=== PATIENT | male | born 1950 | race Caucasian/White ===

== ENCOUNTER → 2020-10-14 | Outpatient (CLI) | payer MEDICARE, OTHER ==
--- NOTE | 2020-10-14 14:43 | US ---
LOWER EXTREMITY VENOUS INSUFFICIENCY CLINICAL HISTORY: L97.322 NONPRESSURE CHRONIC ULCER OF LT ANKLE W/ F. left nonhealing wound SIDE PERFORMED: Left 1) Color flow is present and patency is documented in the following vessels. No DVT or SVT is noted . Common Femoral Vein Deep Femoral Vein Femoral Vein Popliteal Vein Proximal Calf Veins Greater Saph Vein Upper Small Saph Vein 2) There is venous reflux noted at the following venous levels: None 3) Incompetent perforators are noted at these levels: None IMPRESSION: 1. Bilateral lower extremity ultrasound appears unremarkable. No deep venous thrombosis or significan t reflux is evident.
--- NOTE | 2020-10-23 09:59 | P.ARTDOP ---
Arterial Doppler LOWER EXTREMITY ARTERIAL DOPPLER: DATE OF SERVICE: 10/14/2020 Reason for study: Left foot ulcer. Doppler waveforms: Multiphasic throughout bilaterally. Pulse volume recording: Normal configurations. Pressure gradients: None except the great toe on the left. Ankle-brachial indices: Greater than 1 bilaterally. Toe brachial indices: 0.87 on the right, 0.34 on the left Impression: Probably a normal study. Lower toe pressure on the left is not consistent with digital waveforms. Clinical correlation recommended.
== END | disposition home or self-care (01) ==
LOC: RADUSWWP 13:38
PROVIDERS: ATTEND Thoracic Surgery (Cardiothoracic Vascular Surgery)
DX: L97.322 Non-pressure chronic ulcer of left ankle with fat layer exposed (principal); Z88.0 Allergy status to penicillin; Z88.2 Allergy status to sulfonamides; Z88.1 Allergy status to other antibiotic agents; Z88.9 Allergy status to unspecified drugs, medicaments and biological substances
CPT/HCPCS: 93922; 93923

== ENCOUNTER → 2022-12-07 | Day surgery (SDC) | payer MEDICARE, OTHER ==
[2022-12-06 09:04] VITALS: BMI 30.8
[~2022-12-07] MED LIST: ALPRAZolam 0.25 MG TAB PO PRN; ALPRAZolam 0.5 MG TAB PO PRN; ASPIRIN 325 MG TAB PO STA; ATORVASTATIN 80 MG TAB PO STA; BENZOCAINE SPRAY 1 CAN TOPICAL ONE; HEPARIN SODIUM 1,000 UN/ML (10ML VL) IV ONE; HEPARIN SODIUM 1,000 UN/ML (10ML VL) ONE; HEPARIN SODIUM,PORCINE 10,000 UNIT in SODIUM CHLORIDE 0.9% 1,000 ML IRRIGATION PRN; HEPARIN SODIUM,PORCINE 2,500 UNIT in SODIUM CHLORIDE 0.9% 250 ML IRRIGATION PRN; IOPAMIDOL-370 125ML BTL INJ ONE; LIDOCAINE 1% INJ 10MG/ML (5 ML VIAL-PF) SQ ONE; MIDAZOLAM 2 MG/2 ML VIAL IV ONE; NITROGLYCERIN SL TABS 0.4 MG TAB SUBLINGUAL PRN; SODIUM CHLORIDE 0.9% 1,000 ML in EMPTY BAG 1 BAG IV SCH; VERAPAMIL 2.5 MG/ML 2 ML AMP ONE; VERAPAMIL SYRINGE (5 MG/10 ML) INTRAARTER ONE; fentaNYL (PF) 50 MCG/1 ML VIAL IV ONE; fentaNYL (PF) 50 MCG/ML 2 ML AMP ONE
[2022-12-07 07:38] VITALS: TEMP 97.4
[2022-12-07 08:18] LABS: African American GFR (CKD) >90 (>60 ml/min/1.73 sqM); Anion Gap 5 mmol/L; Blood Urea Nitrogen 16 mg/dL (9-20); Carbon Dioxide 29 mmol/L (22-30); Chloride 105 mmol/L (98-107); Glucose 104 mg/dL (74-99); Non-African American GFR(CKD) 90 (>60 ml/min/1.73 sqM); Potassium 4.3 mmol/L (3.5-5.1); Sodium 139 mmol/L (137-145)
[2022-12-07 08:27] LABS: Basophils % (A) 0 %; Eosinophils # (A) 0.3 k/uL (0-0.7); Eosinophils % (A) 5 %; HCT 43.3 % (39.0-53.0); HGB 14.5 gm/dL (13.0-17.5); Lymphocytes # (A) 1.8 k/uL (1.0-4.8); Lymphocytes % (A) 27 %; MCH 29.8 pg (25.0-35.0); MCHC 33.6 g/dL (31.0-37.0); MCV 88.9 fL (80.0-100.0); Mean Platelet Volume 7.3; Monocytes # (A) 0.5 k/uL (0-1.0); Monocytes % (A) 7 %; Neutrophils # (A) 3.9 k/uL (1.3-7.7); Neutrophils % (A) 59 %; Platelet Count 340 k/uL (150-450); RBC 4.87 m/uL (4.30-5.90); RDW 13.1 % (11.5-15.5); WBC 6.7 k/uL (3.8-10.6)
[2022-12-07 10:37] VITALS: RESP 16
--- NOTE | 2022-12-07 12:25 | XR ---
EXAMINATION TYPE: XR chest 2V DATE OF EXAM: 12/07/2022 COMPARISON: NONE TECHNIQUE: PA and lateral views submitted. HISTORY: Preop FINDINGS: The lungs are clear and there is no pneumothorax, pleural effusion, or focal pneumonia. Heart size normal and no overt failure. Osseous structures demonstrate hypertrophic and degenerative changes of the spine. Interstitium is somewhat coarsened. Subsegmental changes at the lung bases mainly in the b ases of reduced inspiration. Hyperinflation suggesting mild COPD. Arthropathy of the AC joints. IMPRESSION: 1. Interstitium is coarsened. There are no prior exams. This could be on the basis of chronic interst itial lung disease or bronchitis. Interstitial acute pneumonitis or mild venous congestion not exclud ed without a prior exam. Correlate clinically. 2. Bibasilar subsegmental consolidation felt most typical of atelectasis secondary to reduced inspira tion.
[2022-12-07 12:40] LABS: ALT 25 U/L (4-49); AST 35 U/L (17-59); African American GFR (CKD) >90 (>60 ml/min/1.73 sqM); Albumin 4.1 g/dL (3.5-5.0); Alkaline Phosphatase 49 U/L (38-126); Anion Gap 5 mmol/L; Blood Urea Nitrogen 13 mg/dL (9-20); Calcium 8.8 mg/dL (8.4-10.2); Carbon Dioxide 27 mmol/L (22-30); Chloride 105 mmol/L (98-107); Glucose 130 mg/dL (74-99); Magnesium 1.7 mg/dL (1.6-2.3); Non-African American GFR(CKD) >90 (>60 ml/min/1.73 sqM); Potassium 4.5 mmol/L (3.5-5.1); Sodium 137 mmol/L (137-145); Total Bilirubin 1.8 mg/dL (0.2-1.3); Total Protein 6.9 g/dL (6.3-8.2)
[2022-12-07 12:43] LABS: INR 1.1 (<1.2); Partial Thromboplastin Time 30.7 sec (22.0-30.0)
[2022-12-07 13:05] VITALS: BP 191/88; PULSE 62
[2022-12-07 13:07] LABS: Appearance,Urine Clear (Clear); Bilirubin,Urine Negative (Negative); Blood,Urine Negative (Negative); Color,Urine Light Yellow; Glucose,Urine (UA) Negative (Negative); Ketones,Urine Negative (Negative); Leukocyte Esterase,Urine Negative (Negative); Nitrite,Urine Negative (Negative); Protein,Urine Negative (Negative); Specific Gravity,Urine 1.026 (1.001-1.035); Urobilinogen,Urine <2.0 mg/dL (<2.0)
--- NOTE | 2022-12-07 13:40 | LTR ---
Dear Rodrick: I performed left heart catheterization and transesophageal echo on Umesh Diego. The patient has severe mitral regurgitation and mild nonobstructive CAD and will be referred to a cardiothoracic surgeon for mitral valve repair. Thank you for giving me the privilege to participate in the care of this pleasant gentleman. LEE ANN / RUBEN: [id number] /
--- NOTE | 2022-12-07 13:40 | CC ---
CARDIAC CATHETERIZATION REPORT INDICATIONS: Severe mitral regurgitation. PROCEDURE NOTE: After obtaining informed consent, left heart catheterization, coronary angiogram and LV- gram were performed via the right radial artery using standard Edmar catheters. The patient tolerated the procedure well without any obvious immediate complications, received moderate conscious sedation. Total sedation time was 24 minutes. Right radial artery access was obtained using modified Seldinger technique. The 6- Kyr[place]z sheath was placed. Catheters and wires were floated into the ascending aorta under fluoroscopic guidance. The patient received 6 mg of verapamil and 5000 units of heparin per protocol. During the left ventriculogram, the connecting tube got disconnected inadvertently towards the end of the injection, but the procedure was completed uneventfully. FINDINGS: 1. Hemodynamics: Left ventricular end-diastolic pressure is 11 mm. There is no significant gradient across the aortic valve. 2. Angiographic Data: a.Right Coronary Artery: Right coronary artery is a codominant vessel. The PLV branch appears small. There is mild nonobstructive disease in the right coronary artery. Left main coronary artery is a short vessel and is free of significant stenosis. Divides into left anterior descending coronary artery and circumflex coronary artery. LAD shows a 30% to 40% mid LAD disease and circumflex coronary artery shows mild nonobstructive disease. b.Left Ventriculogram: Left ventriculogram is performed in PAT position, shows an enlarged left ventricle with ejection fraction of around 55% with 3+ mitral regurgitation. CONCLUSION: 1. Mild nonobstructive coronary artery disease. 2. Mildly dilated left ventricle with an ejection fraction of around 55%. 3. Mitral regurgitation. PLAN: I am going to refer the patient to a cardiothoracic surgeon for mitral valve repair. MMODL / IJN: [id number] /
--- NOTE | 2022-12-07 13:56 | ECHOT ---
TRANSESOPHAGEAL ECHOCARDIOGRAM INDICATION: Umesh is a 72-year-old gentleman that is referred to us for evaluation of dizziness and was found to have a murmur of mitral regurgitation. He had an echocardiogram and a stress test, was found to have significant mitral regurgitation and was advised to undergo transesophageal echo and left heart catheterization. His dizziness has actually resolved from his initial presentation. PROCEDURE NOTE: After obtaining informed consent, transesophageal echocardiogram was performed in left lateral position using an Omniplane probe. Local and IV sedation were obtained with a milligram of Versed and 50 mcg of fentanyl. Total sedation time was 10 minutes. The patient tolerated the procedure well without any obvious immediate complications. FINDINGS: 1. Mitral valve appears thickened, shows mitral valve prolapse with partial flail of the posterior mitral leaflet with severe anteriorly-directed mitral regurgitation with reversal of flow into the pulmonary vein. 2. Left atrium appears severely enlarged. 3. Right atrium and right ventricle seen within normal limits. 4. Left ventricle has normal size with an ejection fraction of 50%. 5. Tricuspid valve shows mild tricuspid regurgitation. There is no evidence of left- to-right shunt by color-flow Doppler or [id number] shunt by agitated saline contrast study. 6. Aortic root measures within normal limits. Aortic valve is a 3-leaflet valve and it is free of stenosis or regurgitation. CONCLUSION: Severe mitral regurgitation secondary to partial flail of the posterior mitral leaflet. PLAN: The patient will undergo cardiac catheterization and will be referred for mitral valve repair. MMODL / IJN: [id number] /
--- NOTE | 2022-12-07 14:33 | US ---
EXAMINATION TYPE: US carotid duplex BILAT DATE OF EXAM: 12/07/2022 COMPARISON: NONE CLINICAL HISTORY: Pre-Op Cardiac Surgery. Pre op cardiac surgery. Hx hyperlipidemia. TECHNIQUE: Carotid duplex ultrasound examination. Indirect Doppler criteria was utilized. FINDINGS: EXAM MEASUREMENTS: RIGHT: Peak Systolic Velocity (PSV) cm/sec ----- Right CCA: 114.3 ----- Right ICA: 104.1 ----- Right ECA: 135.0 ICA/CCA ratio: 0.9 RIGHT: End Diastole cm/sec ----- Right CCA: 19.8 ----- Right ICA: 25.6 ----- Right ECA: 10.7 LEFT: Peak Systolic Velocity (PSV) cm/sec ----- Left CCA: 96.5 ----- Left ICA: 106.9 ----- Left ECA: 162.7 ICA/CCA ratio: 1.1 LEFT: End Diastole cm/sec ----- Left CCA: 21.5 ----- Left ICA: 24.1 ----- Left ECA: 16.9 VERTEBRALS (direction of flow): Right Vertebral: Antegrade Left Vertebral: Antegrade Rhythm: Normal PRESIDING JUDGE NOTES: Plaque seen within bilateral bulbs and bilateral proximal ICAs. Elevated velocitie s within bilateral ECA. IMPRESSION: 1. No clinically significant stenosis involving the bilateral internal carotid arteries. 2. Mild stenosis involving the bilateral external carotid arteries. Criteria for Assigning % of Stenosis / Diameter reduction (Estimation based on the indirect measurements of the internal carotid artery velocities (ICA PSV). 1. Normal (no stenosis)=ICA PSV < 125 cm/s: ratio < 2.0: ICA EDV<40 cm/s. 2. Less than 50% stenosis=ICA PSV < 125 cm/s: ratio < 2.0: ICA EDV<40 cm/s. 3. 50 to 69% stenosis=ICA PSV of 125 to 230 cm/s: ration 2.0 ? 4.0: ICA EDV 40-100 cm/s. 4. Greater than 70% stenosis to near occlusion= ICA PSV > 230 cm/s: ratio > 4.0: ICA EDV > 100 cm/s. 5. Near occlusion= ICA PSV velocities may be low or undetectable: variable ratio and ICA EDV. 6. Total occlusion=unable to detect flow.
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
[2022-12-07 18:57] LABS: Chol/HDL Ratio 3.01 Ratio; LDL Cholesterol,Calculated 98.7 mg/dL (0.0-131.0); VLDL Calculation 16.92 mg/dL (5.00-40.00)
[2022-12-07 19:08] LABS: Hepatitis A Antibody IgM Nonreactive (Nonreactive); Hepatitis B Core IgM Nonreactive (Nonreactive); Hepatitis B Surface Antigen Nonreactive (Nonreactive); Hepatitis C IgG Antibody Nonreactive (Nonreactive)
--- NOTE | 2022-12-08 15:12 | US ---
EXAMINATION TYPE: US arterial LE single level DATE OF EXAM: 12/07/2022 4:11 PM CLINICAL HISTORY: Preoperative CABG) . History of: Smoker: No Hypertension: No Diabetic: No Hyperlipidemia: Yes Comparison: Prior study October 14, 2020 Doppler Waveforms: Right: Biphasic to monophasic Left: Biphasic to monophasic Pulse Volume Recording: Pressure Gradients: Right Brachial Pressure: deferred due to radial approach heart catheterization today Left Brachial Pressure: 148 Ankle-Brachial Indices: Right: 1.35 Left: 1.14 Toe Brachial Indices: Right: 0.89 Left: 0.39 IMPRESSION: Diminished phasicity bilaterally redemonstrated. Persistent diminished left-sided TBI va lue consistent with at least mild peripheral arterial disease in the left foot. Follow-up advised.
== END ==
LOC: CATHCVL 06:53
PROVIDERS: ATTEND Internal Medicine Cardiovascular Disease
DX: I25.10 Atherosclerotic heart disease of native coronary artery without angina pectoris (principal); I08.1 Rheumatic disorders of both mitral and tricuspid valves; E78.2 Mixed hyperlipidemia; Z82.49 Family history of ischemic heart disease and other diseases of the circulatory system; Z79.899 Other long term (current) drug therapy; Z88.0 Allergy status to penicillin; Z88.2 Allergy status to sulfonamides; Z88.5 Allergy status to narcotic agent; Z88.8 Allergy status to other drugs, medicaments and biological substances
CPT/HCPCS: 93458; 93312; 93320; 93325; 94150; 80061; 80053; 80048; 80074; 84443; 83735; 85025; 85610; 85730; 81003; 87070; 83036; 71046; 93922; 93880; C1769; C1894; J2250; J2001; J1644; Q9967; J3010

== ENCOUNTER → 2022-12-08 | Outpatient (CLI) | payer MEDICARE, OTHER ==
--- NOTE | 2022-12-08 12:41 | CT ---
EXAMINATION TYPE: CT chest wo con DATE OF EXAM: 12/08/2022 COMPARISON: Pre-op HISTORY: valve replacement pre op CT DLP: 508.7 mGycm. Automated Exposure Control for Dose Reduction was Utilized. TECHNIQUE: CT scan of the thorax is performed without IV contrast. FINDINGS: LUNGS: The lungs are grossly clear, there is no concerning parenchymal mass or nodule identified. T here is no pleural effusion or pneumothorax seen. The tracheobronchial tree is patent. MEDIASTINUM: Lack of IV contrast is noted to limit evaluation for mediastinal and especially hilar ad enopathy. There are no definitive greater than 1 cm hilar or mediastinal lymph nodes. No cardiomega ly or pericardial effusion is seen. The aorta is of normal course and caliber with mild atherosclerot ic changes. Aortic root measures 3.2 cm. There is calcification of the aortic root near the origin of the aortic valve. Coronary artery calcifications. OTHER: Moderate sized hiatal hernia. Hypertrophic and degenerative changes spine.. IMPRESSION: 1. Mild atherosclerotic change in the aorta. 2 coronary artery dense calcification correlate clinical ly. 3. Moderate-sized hiatal hernia.
== END | disposition home or self-care (01) ==
LOC: RADCTMAIN 11:02
PROVIDERS: ATTEND Surgery
DX: Z01.818 Encounter for other preprocedural examination (principal); K44.9 Diaphragmatic hernia without obstruction or gangrene; I70.0 Atherosclerosis of aorta; Z95.2 Presence of prosthetic heart valve
CPT/HCPCS: 71250

== ENCOUNTER 2024-10-09 14:47 | Emergency (ER) | payer MEDICARE, OTHER ==
[2024-10-09 14:55] VITALS: RESP 18
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
[2024-10-09] MEDS: MORPHINE SULFATE 4 MG/ML SYRINGE IM STA (15:43)
[2024-10-09 15:51] VITALS: TEMP 98
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
[2024-10-09] MEDS: HYDROmorphone 1 MG/ML 1 ML SYRINGE IM STA (17:46)
[2024-10-09] MEDS: ONDANSETRON ODT 4 MG TAB PO STA (17:52)
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
[2024-10-09] MEDS: ACET/COD 300 MG/30 MG STARTER PACK 6 TAB BTL PO STA (18:42)
[2024-10-09 18:57] VITALS: BP 140/79; PULSE 70
== END 2024-10-09 19:45 | disposition home or self-care (01) ==
LOC: EC 14:47
DX: S82.832A Other fracture of upper and lower end of left fibula, initial encounter for closed fracture (principal); Z88.0 Allergy status to penicillin; Z88.1 Allergy status to other antibiotic agents; Z88.2 Allergy status to sulfonamides; Z88.8 Allergy status to other drugs, medicaments and biological substances; V29.99XA Rider (driver) (passenger) of other motorcycle injured in unspecified traffic accident, initial encounter; Y92.410 Unspecified street and highway as the place of occurrence of the external cause
CPT/HCPCS: 73610; 73630; 73700; 99284; 96372 ×2; J2270; J1171

== ENCOUNTER 2024-10-26 14:14 | Inpatient (IN) | payer MEDICARE, OTHER ==
[2024-10-26] MEDS ORDERED: NALOXONE 0.4 MG/ML 1 ML VIAL IV PRN (15:05)
[2024-10-26] MEDS ORDERED: VANCOMYCIN IV PER PHARMACY 1 EACH MISC MISCELLANE PRN (15:07)
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
[2024-10-26] MEDS ORDERED: VANCOMYCIN 2,000 MG in SODIUM CHLORIDE 0.9% 500 ML 500 ML IVPB ONE (15:15)
[2024-10-26] MEDS ORDERED: PIPERACILLIN-TAZOBACTAM 3.375 GM in SODIUM CHLORIDE 0.9% 100 ML IVPB ONE (15:15)
[2024-10-26] MEDS: SODIUM CHLORIDE 0.9% 1,000 ML IV SCH (15:59)
[2024-10-26 16:56] LABS: African American GFR (CKD) 82 (>60 ml/min/1.73 sqM); Anion Gap 6 mmol/L; Blood Urea Nitrogen 21 mg/dL (9-20); Carbon Dioxide 22 mmol/L (22-30); Chloride 109 mmol/L (98-107); Glucose 79 mg/dL (74-99); Non-African American GFR(CKD) 71 (>60 ml/min/1.73 sqM); Potassium 4.4 mmol/L (3.5-5.1); Sodium 137 mmol/L (137-145)
[2024-10-26] MEDS: LIDOCAINE 1% INJ 10MG/ML (20 ML MDV) SQ ONE (18:16)
[2024-10-26] MEDS: PIPERACILLIN-TAZOBACTAM 3.375 GM in SODIUM CHLORIDE 0.9% 100 ML IVPB SCH (18:52)
[2024-10-26] MEDS: ACETAMINOPHEN TAB 325 MG TAB PO PRN (18:56)
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
[2024-10-26] MEDS: METOPROLOL TARTRATE 25 MG TAB PO SCH (22:10)
[2024-10-26] MEDS: oxyCODONE-APAP 5-325MG 1 EACH TAB PO PRN (22:11)
[2024-10-26] MEDS: TAMSULOSIN 0.4 MG CAP.ER.24H PO SCH (22:11)
[2024-10-26] MEDS: ATORVASTATIN 10 MG TAB PO SCH (22:11)
[2024-10-26] MEDS: APIXABAN 5 MG TAB PO SCH (22:11)
[2024-10-26] MEDS: VANCOMYCIN 1,500 MG in SODIUM CHLORIDE 0.9% 500 ML 500 ML IVPB SCH (23:17)
--- NOTE | 2024-10-27 02:01 | OP ---
OPERATIVE REPORT DATE OF SERVICE : PREOPERATIVE DIAGNOSIS: Traumatic wound, right foot dorsum aspect, measurement is 4 x 3 cm. Post-debridement measurement 4 x 3 x 0.5 cm. This patient was seen in the emergency room. Patient has a wound on the dorsal aspect of the foot of 2-1/2 weeks old. There is a dry scab formation noted, negative for drainage. DESCRIPTION OF PROCEDURE: Right foot was prepped and drapes were applied in usual sterile manner. 1% lidocaine was infiltrated. After that, using sharp knife, we excised the scab and debridement was done down to subcutaneous tissue. No active bleeding was noted. The deep tissue was sent for deep culture, anaerobic and anaerobic. Wound was cleaned with saline. Silver alginate applied to the wound. Dressing applied. Patient tolerated the procedure well. The patient has an appointment with the Wound Clinic on Tuesday. LEE ANN / RUBEN: [id number] /
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
[2024-10-27 04:32] LABS: African American GFR (CKD) >90 (>60 ml/min/1.73 sqM); Non-African American GFR(CKD) 80 (>60 ml/min/1.73 sqM)
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
[2024-10-28 06:26] LABS: ALT 12 U/L (4-49); AST 21 U/L (17-59); African American GFR (CKD) >90 (>60 ml/min/1.73 sqM); Albumin 3.2 g/dL (3.5-5.0); Albumin/Globulin Ratio 1.2; Alkaline Phosphatase 63 U/L (38-126); Anion Gap 1 mmol/L; Blood Urea Nitrogen 13 mg/dL (9-20); Calcium 8.9 mg/dL (8.4-10.2); Carbon Dioxide 28 mmol/L (22-30); Chloride 111 mmol/L (98-107); Globulin 2.6 g/dL; Glucose 86 mg/dL (74-99); Non-African American GFR(CKD) 83 (>60 ml/min/1.73 sqM); Potassium 4.4 mmol/L (3.5-5.1); Sodium 140 mmol/L (137-145); Total Bilirubin 0.9 mg/dL (0.2-1.3); Total Protein 5.8 g/dL (6.3-8.2)
[2024-10-28 06:54] LABS: C Reactive Protein 1.1 mg/dL (<1.0)
[2024-10-28] MEDS: CEFEPIME 2 GM in SODIUM CHLORIDE 0.9% 100 ML IVPB SCH (08:06)
[2024-10-28 09:20] LABS: Basophils # (A) 0.06 X 10*3/uL (0.00-0.10); Eosinophils # (A) 0.57 X 10*3/uL (0.04-0.35); Eosinophils % (A) 9.8 %; HCT 39.3 % (39.6-50.0); HGB 12.2 g/dL (13.0-17.0); Lymphocytes # (A) 1.75 X 10*3/uL (0.90-5.00); Lymphocytes % (A) 30.1 %; MCH 29.8 pg (27.0-32.0); MCV 95.9 FL (80.0-97.0); Mean Platelet Volume 8.6 FL (9.5-12.2); Monocytes # (A) 0.55 X 10*3/uL (0.20-1.00); Monocytes % (A) 9.5 %; NRBC Per 100 WBC 0 X 10*3/uL (0.00-0.01); Neutrophils # (A) 2.86 X 10*3/uL (1.80-7.70); Neutrophils % (A) 49.3 %; Platelet Count 457 X 10*3/uL (140-440); RDW 12.9 % (11.5-14.5); WBC 5.81 X 10*3/uL (4.50-10.00)
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
[2024-10-28] MEDS: COLLAGENASE 250 UNIT/GM OINTMENT 30 GM TUBE TOPICAL SCH (11:17)
[2024-10-28 11:58] LABS: Erythrocyte Sedimentation Rate 33 mm/Hr (0-20)
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
[2024-10-28] MEDS: VANCOMYCIN TROUGH DUE 1 EACH MISC MISCELLANE ONE (20:19)
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
[2024-10-29] MEDS: PIPERACILLIN-TAZOBACTAM 3.375 GM in SODIUM CHLORIDE 0.9% 100 ML IVPB SCH (14:54)
[2024-10-29] MEDS ORDERED: diphenhydrAMINE 50 MG/ML 1 ML VIAL IVP PRN (20:58)
[2024-10-29] MEDS ORDERED: LORazepam 0.5 MG TAB PO PRN (20:59)
[2024-10-30 04:45] LABS: African American GFR (CKD) 78 (>60 ml/min/1.73 sqM); Non-African American GFR(CKD) 67 (>60 ml/min/1.73 sqM)
[2024-10-30 07:18] VITALS: BP 134/66; PULSE 68; RESP 17; TEMP 97.9
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
--- NOTE | 2024-10-30 12:27 | NM ---
EXAMINATION TYPE: NM bone 3 phase DATE OF EXAM: 10/30/2024 COMPARISON: Outside radiographs 10/26/2024 CLINICAL INDICATION: Male, 74 years old with history of left foot and ankle pain, wound r/o osteo; TECHNIQUE: Triple phase bone scintigraphy was performed following the injection of 18.2 mCi Tc 99m MD P. Immediate images and 4 hours post injection images acquired. FINDINGS: Flow images show asymmetric hyperemia left ankle and foot. Focal increased activity along the distal fibula. Corresponding increased activity here on pool images as well as at the posterior malleolus and medial left midfoot. Pool images also show increased activity at the proximal fibula near the left knee. Delayed scan with abnormal activity at each of these 4 sites. IMPRESSION: 1. Three-phase bone scan abnormality distal fibula and posterior malleolus. This can be seen in the s etting of both acute/subacute fracture and in the setting of osteomyelitis; this requires further cli nical correlation. 2. Abnormal activity near the region of the proximal left fibula. Recommend dedicated radiographic co rrelation to exclude an occult fracture here. 3. 2 phase bone scan abnormality medial left midfoot probably on a degenerative basis. [facility], , 10/30/2024 12:25 PM
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
== END 2024-10-30 14:48 | disposition home health service (06) | DRG 572 ==
LOC: EC 14:14 → 1SOBS 15:07 → UNDOADMIN 15:07 → 4SSUR 15:07
PROVIDERS: ADMIT Internal Medicine; ATTEND Internal Medicine
PROC: 0JBR0ZZ Excision of Left Foot Subcutaneous Tissue and Fascia, Open Approach (ICD-10-PCS; principal; 2024-10-26)
DX: L03.116 Cellulitis of left lower limb (principal); I10 Essential (primary) hypertension; E78.5 Hyperlipidemia, unspecified; J45.909 Unspecified asthma, uncomplicated; K21.9 Gastro-esophageal reflux disease without esophagitis; M19.90 Unspecified osteoarthritis, unspecified site; M21.961 Unspecified acquired deformity of right lower leg; B96.5 Pseudomonas (aeruginosa) (mallei) (pseudomallei) as the cause of diseases classified elsewhere; Z91.018 Allergy to other foods; Z88.1 Allergy status to other antibiotic agents; Z88.0 Allergy status to penicillin; Z91.048 Other nonmedicinal substance allergy status; Z88.2 Allergy status to sulfonamides; Z88.8 Allergy status to other drugs, medicaments and biological substances
CPT/HCPCS: 36573; 78315; 80048; 80053; 80202; 82565; 85025; 85652; 86140; 87070; 87075; 87077; 87186; 87205; 96361; 96365; 96366; 99285

== ENCOUNTER → 2024-11-05 | Outpatient (CLI) | payer MEDICARE, OTHER ==
[2024-11-05 15:34] LABS: Blood Urea Nitrogen 11.2 mg/dL (9.0-27.0); C Reactive Protein <0.30 mg/dL (0.00-0.80); Calcium 9.1 mg/dL (8.7-10.3); Carbon Dioxide 25.5 mmol/L (21.6-31.8); Chloride 106 mmol/L (96-109); Glucose 91 mg/dL (70-110); Potassium 4.6 mmol/L (3.5-5.5); Sodium 143 mmol/L (135-145)
[2024-11-05 15:45] LABS: Basophils # (A) 0.08 X 10*3/uL (0.00-0.10); Eosinophils # (A) 0.51 X 10*3/uL (0.04-0.35); Eosinophils % (A) 6.4 %; HCT 44.9 % (39.6-50.0); Lymphocytes # (A) 2.46 X 10*3/uL (0.90-5.00); Lymphocytes % (A) 30.9 %; MCH 29.5 pg (27.0-32.0); MCHC 31.2 g/dL (32.0-37.0); MCV 94.5 FL (80.0-97.0); Mean Platelet Volume 8.4 FL (9.5-12.2); Monocytes # (A) 0.58 X 10*3/uL (0.20-1.00); Monocytes % (A) 7.3 %; NRBC Per 100 WBC 0 X 10*3/uL (0.00-0.01); Neutrophils # (A) 4.31 X 10*3/uL (1.80-7.70); Neutrophils % (A) 54.1 %; Platelet Count 470 X 10*3/uL (140-440); RBC 4.75 X 10*6/uL (4.40-5.60); RDW 13.1 % (11.5-14.5); WBC 7.96 X 10*3/uL (4.50-10.00)
== END | disposition home or self-care (01) ==
LOC: LABWHC1 11:02
PROVIDERS: ATTEND Internal Medicine Infectious Disease
DX: L03.116 Cellulitis of left lower limb (principal); S91.302A Unspecified open wound, left foot, initial encounter; Z88.1 Allergy status to other antibiotic agents
CPT/HCPCS: 36415; 80048; 85025; 86140

== ENCOUNTER → 2024-12-31 | Outpatient (CLI) | payer MEDICARE, OTHER ==
[2024-12-31 15:00] LABS: Basophils # (A) 0.05 X 10*3/uL (0.00-0.10); Basophils % (A) 0.7 %; Eosinophils # (A) 0.65 X 10*3/uL (0.04-0.35); Eosinophils % (A) 8.7 %; HCT 41.1 % (39.6-50.0); HGB 13.2 g/dL (13.0-17.0); Lymphocytes # (A) 2.17 X 10*3/uL (0.90-5.00); MCH 29.3 pg (27.0-32.0); MCHC 32.1 g/dL (32.0-37.0); MCV 91.1 FL (80.0-97.0); Mean Platelet Volume 9.1 FL (9.5-12.2); Monocytes # (A) 0.62 X 10*3/uL (0.20-1.00); Monocytes % (A) 8.3 %; NRBC Per 100 WBC 0 X 10*3/uL (0.00-0.01); Neutrophils # (A) 3.99 X 10*3/uL (1.80-7.70); Neutrophils % (A) 53.2 %; Platelet Count 409 X 10*3/uL (140-440); RBC 4.51 X 10*6/uL (4.40-5.60); RDW 13.4 % (11.5-14.5); WBC 7.49 X 10*3/uL (4.50-10.00)
[2024-12-31 15:48] LABS: Erythrocyte Sedimentation Rate 20 mm/Hr (0-20)
== END | disposition home or self-care (01) ==
LOC: LABWHC1 10:56
PROVIDERS: ATTEND Thoracic Surgery (Cardiothoracic Vascular Surgery)
DX: L97.322 Non-pressure chronic ulcer of left ankle with fat layer exposed (principal); L97.522 Non-pressure chronic ulcer of other part of left foot with fat layer exposed
CPT/HCPCS: 36415; 85025; 85652; 86140